=== PATIENT | male | born 1945 | race Two or more races ===

== ENCOUNTER 2020-03-15 16:19 | Emergency (ER) | payer OTHER ==
[~2020-03-15] VITALS: Ht 162.6 cm; Wt 77.1 kg
[2020-03-15] MEDS ORDERED: ONDANSETRON HCL 4 MG/2 ML VIAL IM ONE (16:45)
[2020-03-15] MEDS ORDERED: KETOROLAC TROMETH 30 MG/ML 1ML VIAL IV ONE (16:45)
[2020-03-15] MEDS ORDERED: MORPHINE SULFATE 4 MG/ML SYR/VIAL IV ONE (16:45)
[2020-03-15 18:53] VITALS: BP 122/81
== END 2020-03-15 18:54 | disposition home or self-care (01) ==
LOC: EDBD 16:19 → ER 16:19
DX: M54.16 Radiculopathy, lumbar region (principal)
CPT/HCPCS: 72131; 96372; 96374; 96375; 99285; J1885; J2270; J2405

== ENCOUNTER → 2020-05-09 | Emergency (ER) | payer OTHER ==
[~2020-05-09] VITALS: Ht 175.3 cm; Wt 72.6 kg
[~2020-05-09] MED LIST: ADENOSINE 6 MG/2 ML INJ IV ONE; CALCIUM CHLOR(10%) 100MG/ML 10ML SYRINGE IV ONE; EPINEPHrine HCL 1 MG/10 ML SYRG IV ONE; SODIUM BICARBONATE 8.4% INJ 50ML SYRINGE IV ONE
[2020-05-09 15:27] VITALS: BP 0/0
== END | disposition home or self-care (01) ==
LOC: EDUNIT# 14:26 → EDBD 14:38 → ER 14:38
DX: I46.9 Cardiac arrest, cause unspecified (principal)
CPT/HCPCS: 92950; 99285; J0153; J0171